=== PATIENT | male | born 1980 | race Caucasian/White ===

== ENCOUNTER 2017-01-11 22:58 | Emergency (ER) | payer OTHER ==
[2017-01-12] MEDS ORDERED: Ketorolac INJ* 30 MG/ML 1 ML VIAL IV PUSH ONE (00:08)
[2017-01-12] MEDS ORDERED: Clindamycin 600 MG IVPREMIX(* 600 MG/50 ML SDV IV ONE (00:15)
--- NOTE | 2017-01-12 00:25 | ED ---
Throat Pain/Nasal Congestion - HPI Summary HPI Summary: 36M presents with worsening dental pain for past 2 days. He admits to pain behind eye but denies any swelling behind eye. He has two teeth than need pulled and is suppose to be on antibiotics but cant pick them up because insurance rejected. dentist will not see him until on antibiotics. He denies any fever but states has not felt well. He has been taking ibuprofen for pain without relief. He denies any chest pain or SOB. - History of Current Complaint Chief Complaint: EDDentalPain Time Seen by Provider: 01/11/17 23:34 - Allergies/Home Medications Allergies/Adverse Reactions: Allergies Allergy/AdvReac Type Severity Reaction Status Date / Time No Known Allergies Allergy Verified 01/11/17 23:15 PMH/Surg Hx/FS Hx/Imm Hx Endocrine/Hematology History: Denies: Hx Anticoagulant Therapy Cardiovascular History: Denies: Hx Hypertension Infectious Disease History: No Infectious Disease History: Denies: Traveled Outside the [place] in Last 30 Days - Family History Known Family History: Negative: Cardiac Disease - Social History Alcohol Use: Occasionally Substance Use Type: Reports: None Smoking Status (MU): Former Smoker Review of Systems Negative: Fever Positive: Photophobia Positive: Dental Pain Negative: Chest Pain Negative: Shortness Of Breath All Other Systems Reviewed And Are Negative: Yes Physical Exam Triage Information Reviewed: Yes Vital Signs On Initial Exam: Initial Vitals Temp Pulse Resp BP Pulse Ox 98.1 F 66 16 135/96 95 01/11/17 23:10 01/11/17 23:10 01/11/17 23:10 01/11/17 23:10 01/11/17 23:10 Vital Signs Reviewed: Yes Appearance: Positive: Well-Appearing Skin: Positive: Warm, Dry Head/Face: Positive: Normal Head/Face Inspection Eyes: Positive: Normal, EOMI - pain with movement, CLAUDE, Conjunctiva Clear, Other: - no edema ENT: Positive: Normal ENT inspection, Pharynx normal, TMs normal Dental: Positive: Percussion Tenderness @ - 3,20 Neck: Positive: Supple, Nontender, No Lymphadenopathy Respiratory/Lung Sounds: Positive: Clear to Auscultation, Breath Sounds Present Cardiovascular: Positive: Normal, RRR Diagnostics - Vital Signs Vital Signs Temp Pulse Resp BP Pulse Ox 01/11/17 23:52 98.1 F 66 16 135/96 95 01/11/17 23:10 98.1 F 66 16 135/96 95 - Laboratory Result Diagrams: 01/12/17 00:25 01/12/17 00:25 Lab Statement: Any lab studies that have been ordered have been reviewed, and results considered in the medical decision making process. - CT orbit CT Interpretation: Positive (See Comments) - evidence of severe right maxillary sinusitis, orbits unremarkable, evidence of periodontal disease CT Interpretation Completed By: Radiologist EENT Course/Dx - Course Course Of Treatment: 36M presents with dental pain worsening for last two days. says pain has started behind eye and has pain with EOM but no edema so will get CT orbit. CT normal. gave dose of clindamycin IV here. have PCN script and wanted ibuprofen deviated so did diclofenac because covered by urgent Rx. patient understands and agrees with plan - Differential Diagnoses Differential Diagnoses: Dental Abscess, Dental Caries, Fractured Tooth - Diagnoses Provider Diagnoses: Dental abscess Discharge - Discharge Plan Condition: Good Disposition: HOME Prescriptions: Diclofenac [Zorvolex] 35 mg PO TID #15 cap Penicillin VK TAB* [Penicillin VK 250 mg Tab*] 500 mg PO QID #28 tab Patient Education Materials: Dental Abscess (ED) Referrals: No Primary Care Phys,NOPCP [Primary Care Provider] - Additional Instructions: Take antibiotics: 4 times a day for 7 days, first dose given in ED Take diclofenac three times a day for pain Avoid hard, crunchy food until seen by dentist Follow up with dentist as soon as possible Return to ED if develop fever, shortness of breath, swelling around eye Images - Images Dental: 1 - abscess 2 - abscess
[2017-01-12 00:40] LABS: Hematocrit 47 % (42-52); Mean Corpuscular HGB Conc 34 g/dl (31-36); Mean Corpuscular Hemoglobin 33 pg (27-31); Mean Corpuscular Volume 97 fL (80-94); Mean Platelet Volume 8 um3 (7.4-10.4); Red Cell Distribution Width 14 % (10.5-15); White Blood Count 7.7 10^3/ul (3.5-10.8)
[2017-01-12 00:52] LABS: Albumin 4.1 g/dL (3.2-5.2); BUN/Creatinine Ratio 16.7 (8-20); Calcium 9.6 mg/dL (8.6-10.3); EGFR African American 113.3 (>60); EGFR Non-African American 88.1 (>60); Globulin 3.2 g/dL (2-4); Potassium 3.8 mmol/L (3.5-5.0); Total Bilirubin 1.2 mg/dL (0.2-1.0); Total Protein 7.3 g/dL (6.4-8.9)
[2017-01-12] MEDS ORDERED: Iohexol 300* (CONTRAST) 10 ML SDV IV ONE ×2 (01:21→01:48)
[2017-01-12 03:06] VITALS: BP 99/68
--- NOTE | 2017-01-12 07:59 | RAD ---
HISTORY: Dental pain, pain with eye movement COMPARISONS: None TECHNIQUE: Multiple contiguous axial CT scans were obtained of the face with intravenous contrast, with coronal and sagittal multiplanar reformations. FINDINGS: BONES: There is no displaced fracture or dislocation. The orbital rim is intact. The zygomatic arch is intact. The pterygoid plates are intact. ORBITS: The globes are round. The optic nerves are symmetric. The extraocular musculature is normal. There is no post septal or intraconal inflammatory change. There is no retrobulbar hematoma. There is no abnormal enhancement. PARANASAL SINUSES: There is opacification of the right maxillary sinus. There is osteitis of the surrounding bone. BRAIN AND SOFT TISSUE: Unremarkable. OTHER: There is periapical lucency along the right last maxillary molar IMPRESSION: 1. FINDINGS CONSISTENT WITH CHRONIC RIGHT MAXILLARY SINUSITIS. 2. PERIAPICAL LUCENCY OF THE RIGHT MAXILLARY LAST MOLAR CONSISTENT WITH PERIAPICAL CYST/ABSCESS. RECOMMEND CONSIDERATION OF CORRELATION WITH DEDICATED DENTAL IMAGING AND CONSULTATION. 3. NO ACUTE CT PATHOLOGY OF THE ORBITS.
== END 2017-01-12 03:05 | disposition home or self-care (01) ==
LOC: ED 22:58
DX: K04.7 Periapical abscess without sinus (principal); Z87.891 Personal history of nicotine dependence
CPT/HCPCS: 36415; 70481; 80053; 85025; 99282; J1885; Q9967